=== PATIENT | female | born 1945 | race Hispanic/Latino ===

== ENCOUNTER → 2017-06-25 | Outpatient (CLI) | payer OTHER ==
[~2017-06-25] MED LIST: AMIO200T2 PO; CARV6.25 PO; DEXT15DR21 OU; ESOM20CA39 PO; FLUT16H NASAL; FURO20TA4 PO; LEVO25TA54 PO; PARO-37 PO; SIME180C46 PO
== END | disposition home or self-care (01) ==
LOC: RAH 09:10
PROVIDERS: ATTEND Internal Medicine Gastroenterology
DX: K74.60 Unspecified cirrhosis of liver (principal); R18.8 Other ascites
CPT/HCPCS: 76700

== ENCOUNTER 2017-07-25 05:56 | Day surgery (SDC) | payer OTHER ==
[~2017-07-25] VITALS: Ht 154.9 cm; Wt 50.8 kg
[~2017-07-25 05:56] MED LIST changes: -AMIO200T2 PO; +AMIO200T5 PO; +SODIUM CHLORIDE 0.9% 1000ML 1,000 ML IV ONE
[2017-07-25 06:32] VITALS: BP 153/84
[2017-07-25] MEDS ORDERED: GLYCOPYRROLATE 0.2 MG/ML 5 ML VIAL ONE (07:31)
[2017-07-25] MEDS ORDERED: PROPOFOL 10 MG/ML 20ML VIAL IV ONE (07:31)
[2017-07-25] MEDS ORDERED: LIDOCAINE HCL 2% 20ML ONE (07:32)
[2017-07-25 08:16] VITALS: BP 91/56
== END 2017-07-25 09:05 ==
LOC: ENDO 05:56 → DAH 05:56 → ENDO 09:05
PROVIDERS: ATTEND Internal Medicine Gastroenterology
DX: T18.2XXA Foreign body in stomach, initial encounter (principal); R13.10 Dysphagia, unspecified; L53.8 Other specified erythematous conditions; Z88.5 Allergy status to narcotic agent; Z79.899 Other long term (current) drug therapy; K21.9 Gastro-esophageal reflux disease without esophagitis; E78.4 Other hyperlipidemia; I48.91 Unspecified atrial fibrillation; Z95.0 Presence of cardiac pacemaker; D64.89 Other specified anemias; E03.8 Other specified hypothyroidism; F32.89 Other specified depressive episodes; Z90.49 Acquired absence of other specified parts of digestive tract; X58.XXXA Exposure to other specified factors, initial encounter; Y93.89 Activity, other specified; Y92.89 Other specified places as the place of occurrence of the external cause; Y99.8 Other external cause status; I11.0 Hypertensive heart disease with heart failure; I50.9 Heart failure, unspecified
CPT/HCPCS: 43247; 93005; A4606; J2704; J3490 ×2; J7030

== ENCOUNTER → 2018-05-22 | Outpatient (CLI) | payer OTHER ==
[~2018-05-22] MED LIST changes: -SODIUM CHLORIDE 0.9% 1000ML 1,000 ML IV ONE
== END | disposition home or self-care (01) ==
LOC: RAH 11:31
PROVIDERS: ATTEND Internal Medicine Cardiovascular Disease
DX: I11.0 Hypertensive heart disease with heart failure (principal); I50.42 Chronic combined systolic (congestive) and diastolic (congestive) heart failure; Z95.0 Presence of cardiac pacemaker; M81.0 Age-related osteoporosis without current pathological fracture
CPT/HCPCS: 71046

== ENCOUNTER → 2018-11-04 | Outpatient (CLI) | payer OTHER | END | disposition home or self-care (01) | LOC: RAH 11:30 | PROVIDERS: ATTEND Internal Medicine Cardiovascular Disease | DX: I11.0 Hypertensive heart disease with heart failure (principal); I50.42 Chronic combined systolic (congestive) and diastolic (congestive) heart failure; M47.814 Spondylosis without myelopathy or radiculopathy, thoracic region; Z95.0 Presence of cardiac pacemaker | CPT/HCPCS: 71046 ==

== ENCOUNTER 2018-12-11 12:32 | Inpatient (IN) | payer OTHER | END 2018-12-14 18:30 | disposition home or self-care (01) | LOC: EDH 12:32 → EDHIP 12:33 → 2AH 14:22 | DX: I50.43 Acute on chronic combined systolic (congestive) and diastolic (congestive) heart failure (principal); I13.0 Hypertensive heart and chronic kidney disease with heart failure and stage 1 through stage 4 chronic kidney disease, or unspecified chronic kidney disease; Z95.0 Presence of cardiac pacemaker; I48.91 Unspecified atrial fibrillation; I49.5 Sick sinus syndrome; N18.3 Chronic kidney disease, stage 3 (moderate); E11.22 Type 2 diabetes mellitus with diabetic chronic kidney disease; M34.9 Systemic sclerosis, unspecified; K31.819 Angiodysplasia of stomach and duodenum without bleeding ==